=== PATIENT | female | born 1945 | race African-American/Black ===

== ENCOUNTER 2022-08-23 15:46 | Outpatient (CLI) | payer MEDICARE, SELFPAY ==
--- NOTE | ~2022-08-23 | CT_ITS ---
EXAMINATION: CT lumbar spine wo con DATE: 08/23/2022 16:49 INDICATION: Low back pain. TECHNIQUE: Computed tomography (CT) of the lumbar spine was performed without intravenous contrast. A utomated exposure control and iterative reconstruction technique were employed. The dose-length produ ct was 1391.08 mGy-cm. COMPARISON: None FINDINGS: There are changes of cholecystectomy. Calcified abdominal lymph nodes are consistent with o ld granulomatous disease. There is 6 degrees levocurvature of lumbar spine. Vertebral body heights ar e normal. Intervertebral disc heights are normal in lumbar spine. The following disc levels are speci fically discussed: L1-L2: The disc is bulging. There is moderate bilateral facet joint osteoarthritis. There is mild andrew ateral neural foraminal stenosis. There is mild central canal stenosis. L2-L3: The disc is bulging. There is severe bilateral facet joint osteoarthritis. There is mild bilat eral neural foraminal stenosis. There is mild central canal stenosis. L3-L4: The disc is bulging. There is severe bilateral facet joint osteoarthritis. There is moderate b ilateral neural foraminal stenosis. There is moderate central canal stenosis. L4-L5: The disc is bulging. There is severe bilateral facet joint osteoarthritis. There is mild right and moderate left neural foraminal stenosis. There is mild central canal stenosis. L5-S1: The disc is bulging. There is severe bilateral facet joint osteoarthritis. There is mild bilat eral neural foraminal stenosis. There is mild central canal stenosis. IMPRESSION: 1. Moderate lumbar spondylosis. Reviewed, dictated and finalized at location [facility]. O INSPECTOR
--- NOTE | ~2022-08-23 | CT_ITS ---
EXAMINATION: CT brain wo con DATE: 08/23/2022 16:49 INDICATION: Persistent headaches. Previous tumor. TECHNIQUE: Computed tomography (CT) of the head was performed without intravenous contrast. The mA wa s adjusted according to patient size. Iterative reconstruction technique was employed. Exam dose: 60 5.33 mGy-cm total exam DLP. COMPARISON: 06/29/2004 CT brain FINDINGS: Small chronic lacunar infarct is noted in the region of the anterior limb of the right inte rnal capsule. Cerebral atherosclerotic calcifications are noted. There is nonspecific diminished attenuation of the cerebral white matter, likely due to chronic small vessel ischemic changes. No intracranial mass lesion or hemorrhage, midline shift or mass effect effect is noted. No subdural or epidural hematoma. There is soft tissue thickening and/or fluid in the dependent aspect of the left frontal and left sph enoid sinuses. The included paranasal sinuses and mastoid air cells are otherwise normally developed and aerated. No fracture or bone destruction of the cranial vault. IMPRESSION: Severe left hydronephrosis and chronic small vessel ischemic changes of the cerebral whi te matter Small chronic lacunar infarct in the region of the anterior limb of the right internal capsule Soft tissue thickening and/or fluid in the dependent aspect of the left maxillary and sphenoid sinuse s Reviewed, dictated and finalized at [facility]. Reviewed, dictated and finalized at location [facility]. MANAGEMENT ANALYST IMPRESSION: Severe left hydronephrosis and chronic small vessel ischemic watt es of the cerebral white matter Small chronic lacunar infarct in the region of the anterior limb of the right i nternal capsule Soft tissue thickening and/or fluid in the dependent aspect of the left maxilla ry and sphenoid sinuses
== END 2022-08-23 15:47 | disposition home or self-care (01) ==
PROVIDERS: PCP Family Medicine; Visit Provider Nurse Practitioner Adult Health
DX: R51.9 Headache, unspecified (principal); M79.605 Pain in left leg; M79.604 Pain in right leg; Z85.841 Personal history of malignant neoplasm of brain; M54.50 Low back pain, unspecified; M47.896 Other spondylosis, lumbar region; R93.0 Abnormal findings on diagnostic imaging of skull and head, not elsewhere classified
CPT/HCPCS: 70450; 72131

== ENCOUNTER 2023-06-11 11:13 | Outpatient (CLI) | payer MEDICARE, SELFPAY ==
[2023-06-11 17:25] LABS: MALB Creatinine Ratio 73.1 mg/g (0-30); Microalbumin Urine Random 89.2 mg/L (0-16.7)
[2023-06-11 17:51] LABS: Alanine Aminotransferase 30 U/L (6-35); Alkaline Phosphatase 56 U/L (38-126); Anion Gap 8 mmol/L (8-16); Aspartate Amino Transferase 93 U/L (14-36); Bilirubin,Total 0.5 mg/dL (0.2-1.3); Blood Urea Nitrogen 15 mg/dL (7-17); Calcium 9.2 mg/dL (8.4-10.2); Carbon Dioxide 27 mmol/L (22-30); Chloride 103 mmol/L (98-107); Cholesterol 172 mg/dL (0-200); Estimated Glomerular Filt Rate > 60; Glucose 104 mg/dL (65-110); HDL Direct 45 mg/dL; Potassium 4.1 mmol/L (3.4-5.0); Sodium 138 mmol/L (137-145); Triglycerides 100 mg/dL (<150)
[2023-06-11 17:55] LABS: Free T4 Free Thyroxine 1.36 ng/mL (0.78-2.19)
[2023-06-11 18:02] LABS: LDL Cholesterol Direct 91 mg/dL
== END 2023-06-11 11:14 | disposition home or self-care (01) ==
LOC: ANHWCLAB 11:14
PROVIDERS: PCP Nurse Practitioner Adult Health; Visit Provider Internal Medicine
DX: E11.9 Type 2 diabetes mellitus without complications (principal); E66.9 Obesity, unspecified; E78.5 Hyperlipidemia, unspecified; I10 Essential (primary) hypertension; Z71.3 Dietary counseling and surveillance; E55.9 Vitamin D deficiency, unspecified
CPT/HCPCS: 36415; 80053; 80061; 82043; 82306; 84439; 84443

== ENCOUNTER 2024-02-28 11:28 | Outpatient (CLI) | payer MEDICARE, SELFPAY ==
[2024-02-28 16:43] LABS: Basophils Percent Auto 0.7 % (0.2-1.2); Eosinophils Absolute Auto 0.1 K/mm3 (0-0.3); Eosinophils Percent Auto 2.3 % (0-4.4); Hematocrit 44.2 % (37.0-47.0); Immature Granulocyte Absolute 0.01 K/mm3 (0.00-0.031); Immature Granulocyte Percent A 0.2 % (0-0.5); Lymphocytes Absolute Auto 3.05 K/mm3 (0.9-3.2); Lymphocytes Percent Auto 51.1 % (18.3-44.2); Mean Corpuscular HGB Conc 31.7 g/dl (32-36); Mean Corpuscular Hemoglobin 28.5 pg (26-34); Mean Corpuscular Volume 89.8 fl (80-100); Mean Platelet Volume 10.6 fl (7.4-10.4); Monocytes Absolute Auto 0.4 K/mm3 (0.1-0.6); Neutrophils Absolute Auto 2.3 K/mm3 (1.3-6.7); Neutrophils Percent Auto 38.7 % (45.5-73.1); Platelet Count Result 351 k/mm3 (150-375); Red Blood Count 4.92 M/mm3 (4.2-5.4); Red Cell Distribution Width 13.4 % (11.5-14.5)
[2024-02-28 17:45] LABS: Alanine Aminotransferase 24 U/L (6-35); Albumin Level 4.3 g/dL (3.5-5.1); Alkaline Phosphatase 72 U/L (38-126); Anion Gap 7 mmol/L (4-12); Aspartate Amino Transferase 73 U/L (14-36); Bilirubin,Total 0.7 mg/dL (0.2-1.3); Blood Urea Nitrogen 14 mg/dL (7-17); Calcium 9.4 mg/dL (8.4-10.2); Carbon Dioxide 26 mmol/L (22-30); Chloride 105 mmol/L (98-107); Cholesterol 168 mg/dL (0-200); Estimated Glomerular Filt Rate > 60; Glucose 277 mg/dL (65-110); HDL Direct 40 mg/dL; Sodium 138 mmol/L (137-145); Triglycerides 143 mg/dL (<150)
[2024-02-28 17:56] LABS: LDL Cholesterol Direct 102 mg/dL
== END 2024-02-28 11:29 | disposition home or self-care (01) ==
LOC: ANHWCLAB 11:32
PROVIDERS: PCP Registered Nurse; Visit Provider Registered Nurse
DX: E78.5 Hyperlipidemia, unspecified (principal); E11.9 Type 2 diabetes mellitus without complications; I10 Essential (primary) hypertension
CPT/HCPCS: 36415; 80053; 80061; 83036; 85025